=== PATIENT | male | born 1960 | race Caucasian/White ===

== ENCOUNTER 2016-10-03 04:38 | Emergency (ER) | payer OTHER ==
[~2016-10-03] VITALS: Ht 175.3 cm; Wt 98.9 kg
[2016-10-03] MEDS ORDERED: DIAZ2 PO ×2 (04:47→05:47)
[2016-10-03] MEDS ORDERED: METH10 PO ×2 (04:47→05:47)
[2016-10-03] MEDS ORDERED: HYDR-3705 PO (04:47)
[2016-10-03 04:57] LABS: GLUCOSE,POINT OF CARE 92 MG/DL (70-110)
[2016-10-03] MEDS ORDERED: HYDR-3709 PO (05:47)
[2016-10-03] MEDS ORDERED: TEST1T TP (05:47)
[2016-10-03 06:04] LABS: BASOPHILS % (AUTO) 0.3 % (0.0-2.0); EOSINOPHILS % (AUTO) 0 % (1.0-6.0); HEMATOCRIT 44.5 % (41-53); HEMOGLOBIN 14.5 g/dL (13.5-17.5); LYMPHOCYTES # (AUTO) 1.6 K/uL (1.0-4.8); LYMPHOCYTES % (AUTO) 9.6 % (22.0-44.0); MEAN CORPUSCULAR HEMOGLOBIN 29.1 pg (26.0-34.0); MEAN CORPUSCULAR HGB CONC 32.5 G/dL (31.0-37.0); MEAN CORPUSCULAR VOLUME 89 fL (80-100); MONOCYTES # (AUTO) 1.2 K/uL (0.1-1.0); MONOCYTES % (AUTO) 6.9 % (2.0-9.0); NEUTROPHILS # (AUTO) 13.8 K/uL (1.8-7.7); NEUTROPHILS % (AUTO) 83.2 % (40.0-70.0); PLATELET COUNT (AUTO) 243 K/uL (150-450); RED BLOOD CELL COUNT(AUTO) 4.98 MIL/uL (4.50-5.90); RED CELL DISTRIBUTION WIDTH 13.4 % (11.5-14.5); WHITE BLOOD COUNT (AUTO) 16.6 K/uL (4.5-11.0)
[2016-10-03 06:09] LABS: ANION GAP 2 mmol/L (8-16); CALCIUM, TOTAL 8.8 mg/dL (8.8-10.5); CARBON DIOXIDE 36 mmol/L (22-29); CHLORIDE 98 mmol/L (98-107); CREATININE 1.01 mg/dL (0.60-1.30); GLOMERULAR FILTR. RATE CALC > 60 mL/min (>60); SODIUM SERUM 136 mmol/L (136-145); UREA NITROGEN, BLOOD 19 mg/dL (7-18)
[2016-10-03 06:15] LABS: ALANINE AMINOTRANSFERASE 30 U/L (12-78); ALBUMIN 3.1 g/dL (3.4-5.0); ASPARTATE AMINOTRANSFERASE 32 U/L (15-37); BILIRUBIN,TOTAL 0.6 mg/dL (0.1-1.0); TOTAL PROTEIN, SERUM 7.4 g/dL (6.4-8.2)
[2016-10-03 06:23] LABS: SALICYLATE 0.2 mg/dL (2.8-20.0)
[2016-10-03 06:27] LABS: B-TYPE NATRIURETIC PEPTIDE 82 pg/mL (0-100)
[2016-10-03 06:28] LABS: ACETAMINOPHEN < 2 mcg/mL (10-30)
[2016-10-03] MEDS ORDERED: FLUMAZENIL 0.1 MG/ML 5 ML VIAL IVP ONE (06:45)
[2016-10-03] MEDS ORDERED: SODIUM CHLORIDE 0.9% 1,000 ML IV ONE ×2 (06:45)
[2016-10-03 07:39] VITALS: BP 125/83
== END 2016-10-03 08:16 | disposition short-term general hospital (02) ==
LOC: EMS 04:42
DX: T42.4X1A Poisoning by benzodiazepines, accidental (unintentional), initial encounter (principal); G89.29 Other chronic pain; F11.90 Opioid use, unspecified, uncomplicated; Y92.89 Other specified places as the place of occurrence of the external cause
CPT/HCPCS: 36415; 80053; 80307; 82962; 83880; 84484; 85025; 93005; 96361; 96374; 99291; G0480; J3490; J7030; G0481